=== PATIENT | male | born 1990 | race Caucasian/White ===

== ENCOUNTER 2021-02-08 07:25 | Emergency (ER) | payer OTHER ==
[~2021-02-08] VITALS: Ht 177.8 cm; Wt 99.8 kg
[2021-02-08 07:41] VITALS: BP_SYST 107
[2021-02-08] MEDS ORDERED: TRAM50TA PO (08:33)
[2021-02-08] MEDS ORDERED: NAPR-688 PO (08:33)
[2021-02-08] MEDS ORDERED: CYCL-10 PO (08:33)
[2021-02-08 08:45] VITALS: BP_SYST 107
== END 2021-02-08 08:45 | disposition home or self-care (01) ==
LOC: SED 07:25
DX: M54.5 Low back pain (principal); Z79.899 Other long term (current) drug therapy
CPT/HCPCS: 72100-TC; 99284